=== PATIENT | female | born 1950 | race Caucasian/White ===

== ENCOUNTER 2018-11-03 16:36 | Emergency (ER) | payer MEDICARE ==
[~2018-11-03] VITALS: Ht 162.6 cm; Wt 59.0 kg
[2018-11-03 16:43] VITALS: BP_SYST 167
[2018-11-03 18:04] VITALS: BP_SYST 167
== END 2018-11-03 18:01 | disposition home or self-care (01) ==
LOC: SED 16:36
DX: S09.90XA Unspecified injury of head, initial encounter (principal); E78.00 Pure hypercholesterolemia, unspecified; Z88.0 Allergy status to penicillin; Z88.1 Allergy status to other antibiotic agents; Z88.2 Allergy status to sulfonamides; W22.8XXA Striking against or struck by other objects, initial encounter; Y93.89 Activity, other specified; Y92.009 Unspecified place in unspecified non-institutional (private) residence as the place of occurrence of the external cause; Y99.8 Other external cause status
CPT/HCPCS: 70450-TC; 99284